=== PATIENT | female | born 1960 | race American Indian/Alaskan Native ===

== ENCOUNTER 2021-12-21 06:10 | Day surgery (SDC) | payer BC ==
[2021-12-21] MEDS ORDERED: SODIUM CHLORIDE 0.9% 1000 ML 1,000 ML IV SCH (06:45)
[2021-12-21 07:13] LABS: Hematocrit 43.8 % (30.3-42.9); Hemoglobin 14.2 gm/dl (10.1-14.3); Mean Corpuscular HGB Conc 33 % (30-34); Mean Corpuscular Volume 85 fl (79-97); Platelet Count 256 K/mm3 (140-440); Red Blood Count 5.14 M/mm3 (3.65-5.03); Red Cell Distribution Width 13.3 % (13.2-15.2)
[2021-12-21] MEDS ORDERED: LIDOCAINE MPF (2%) 20 MG/1 ML VIAL 5 ML ONE (07:23)
[2021-12-21] MEDS ORDERED: propofoL 200 MG/20 ML VIAL IV ONE (07:23)
[2021-12-21 07:24] VITALS: BP 134/77
[2021-12-21 07:24] LABS: INR 1.05 (0.87-1.13)
[2021-12-21 07:25] LABS: Partial Thromboplastin Time 27.7 Sec. (24.2-36.6)
[2021-12-21 07:26] LABS: Blood Urea Nitrogen 8 mg/dL (7-17); Calcium 9.4 mg/dL (8.4-10.2); Hemolysis Index 3
[2021-12-21 07:27] LABS: BUN/Creatinine Ratio 11
[2021-12-21] MEDS ORDERED: POTASSIUM CHLORIDE ER 20 MEQ TAB PO SCH (08:30)
[2021-12-21 15:02] LABS: Basophils % (Manual) 0 % (0.0-1.8); Total Cells Counted 100
[2021-12-21 15:03] LABS: Large Platelets Rare; Platelet Estimate Cons; RBC Morphology Normal
--- NOTE | 2021-12-24 13:54 | Electrocardiograph Report ---
[facility] Test Date: 2021-12-21 Test Time: 07:19:58 Pat Name: RAUL DUMONT Department: Room: Gender: F Coding Analyst: JANETT : 1960 Requested By: MARIANA BACA Order Number: [id number] Reading MD: Heriberto Dodd Measurements Intervals [place] Rate: 69 P: AR: QRS: -14 QRSD: 81 T: 238 QT: 421 QTc: 451 Interpretive Statements Atrial fibrillation Probable LVH with secondary repol abnrm Abnormal T, probable ischemia, lateral leads No previous ECG available for comparison Electronically Signed On 12-24-2021 13:54:46 EDT by Heriberto Dodd
== END 2021-12-21 09:00 | disposition home or self-care (01) ==
LOC: CATHLABREC 06:10
PROVIDERS: ATTEND Internal Medicine Cardiovascular Disease
DX: I48.0 Paroxysmal atrial fibrillation (principal); E78.00 Pure hypercholesterolemia, unspecified; I10 Essential (primary) hypertension; Z53.8 Procedure and treatment not carried out for other reasons; Z20.822 Contact with and (suspected) exposure to COVID-19; Z79.899 Other long term (current) drug therapy; Z87.891 Personal history of nicotine dependence; Z98.49 Cataract extraction status, unspecified eye; Z98.890 Other specified postprocedural states; Z82.5 Family history of asthma and other chronic lower respiratory diseases; Z80.8 Family history of malignant neoplasm of other organs or systems; Z98.891 History of uterine scar from previous surgery
CPT/HCPCS: 36415; 80048; 85007; 85025; 85610; 85730; 93005; J2704; J3490; J7030; U0003